=== PATIENT | female | born 1945 | race Caucasian/White ===

== ENCOUNTER 2019-12-15 23:50 | Inpatient (IN) ==
[2019-12-16] MEDS ORDERED: DEXTROSE 50% 25 GM/50 ML VIAL IV PRN (02:31)
[2019-12-16] MEDS ORDERED: GLUCAGON 1 MG VIAL IM PRN (02:31)
[2019-12-16] MEDS ORDERED: ONDANSETRON 4 MG/2 ML VIAL IV PRN (02:31)
[2019-12-16] MEDS ORDERED: SODIUM CHLORIDE 0.45% 1,000 ML IV SCH (03:00)
[2019-12-16 03:44] LABS: Basophils % 0.4 % (0.0-0.8); Eosinophils % 0.4 % (0.00-10.9); Hematocrit 28.5 VOL% (35.7-47.0); Hemoglobin 9.1 GM/DL (12.0-16.0); Immature Granulocytes % 0.4 %; Immature Granulocytes Absolute 0.03 #; Lymphocytes # 0.4 10*3/uL (1.4-4.0); Lymphocytes % 6.5 % (21.3-54.2); Mean Corpuscular HGB Conc 31.9 GM/DL (32-36); Mean Corpuscular Volume 100.4 FL (87-102); Mean Platelet Volume 10.8 FL (9.6-12.0); Neutrophils % 81.3 % (38.7-73.9); Platelet Count 131 T/CUMM (130-400); Red Blood Count 2.84 MC/CUMM (3.8-5.5); White Blood Count 6.7 T/CUMM (4-12)
[2019-12-16 04:31] LABS: Albumin 3.1 G/DL (3.4-5.0); Bilirubin,Total 1.9 MG/DL (0.2-1.0); Calcium 8.6 MG/DL (8.5-10.1); Osmolality,Calculated 294.2 MOS/KG (273-304); Total Protein 7.2 G/DL (6.4-8.3)
[2019-12-16 08:54] LABS: % Iron Saturation 11.5 % (18-50); Ferritin 150.3 ng/ml (8-252)
[2019-12-16] MEDS: PANTOPRAZOLE 40 MG TABLET PO SCH (09:34)
[2019-12-16] MEDS: LACTULOSE 20 GM/30 ML UDCUP PO SCH ×3 (09:34→18:34)
[2019-12-16] MEDS: ENOXAPARIN 30 MG/0.3 ML SYRINGE SUBCUT SCH (09:35)
[2019-12-16 14:21] LABS: INR 1.4; PT Patient Result 14.8 SECS (9.8-11.9)
[2019-12-16 14:31] LABS: Folate > 24.0 NG/ML (5.4-24.0); Vitamin B12 > 2000 PG/ML (211-911)
[2019-12-16 15:13] LABS: Hepatitis B Core IgM Quant 0.12 Index; Hepatitis B Surface Ag Quant < 0.10 Index; Hepatitis B Surface Ag Result Negative (Negative); Hepatitis C Virus Ab Quant 0.07 Index; Hepatitis C Virus Ab Result Negative (Negative)
[2019-12-16] MEDS: FERROUS SULFATE 325 MG TABLET PO SCH (23:59)
[2019-12-16] MEDS: ROSUVASTATIN 20 MG TABLET PO SCH (23:59)
[2019-12-17] MEDS: LACTULOSE 20 GM/30 ML UDCUP PO SCH ×7 (02:57→21:49)
[2019-12-17 05:48] LABS: Basophils % 0.4 % (0.0-0.8); Eosinophils % 0.1 % (0.00-10.9); Hematocrit 27.5 VOL% (35.7-47.0); Hemoglobin 9.1 GM/DL (12.0-16.0); Immature Granulocytes % 0.4 %; Immature Granulocytes Absolute 0.03 #; Lymphocytes # 0.6 10*3/uL (1.4-4.0); Lymphocytes % 8.1 % (21.3-54.2); Mean Corpuscular HGB Conc 33.1 GM/DL (32-36); Mean Corpuscular Volume 98.2 FL (87-102); Mean Platelet Volume 11.5 FL (9.6-12.0); Monocytes % 15.7 % (1.7-12.7); Neutrophils % 75.3 % (38.7-73.9); Platelet Count 136 T/CUMM (130-400); Red Cell Distribution Width 18.1 % (9.3-17.3); White Blood Count 7.6 T/CUMM (4-12)
[2019-12-17 06:11] LABS: Calcium 8.9 MG/DL (8.5-10.1); Osmolality,Calculated 295.2 MOS/KG (273-304)
[2019-12-17 06:13] LABS: Eosinophils 1 % (0-10); Lymphocytes 12 % (20-55); Platelet Estimate Adequate; Segmented Neutrophils 75 % (50-85); Total Cells Counted 100
[2019-12-17 06:14] LABS: Hypochromasia 1+; Ovalocytes Slight
[2019-12-17 06:16] LABS: Bilirubin,Total 2.5 MG/DL (0.2-1.0); Calcium 8.9 MG/DL (8.5-10.1); Osmolality,Calculated 296.2 MOS/KG (273-304); Total Protein 7.1 G/DL (6.4-8.3)
[2019-12-17] MEDS: PANTOPRAZOLE 40 MG TABLET PO SCH (09:47)
[2019-12-17] MEDS: FUROSEMIDE 40 MG TABLET PO SCH (09:47)
[2019-12-17] MEDS: ENOXAPARIN 30 MG/0.3 ML SYRINGE SUBCUT SCH (09:47)
[2019-12-17] MEDS: CLOPIDOGREL 75 MG TABLET PO SCH (09:48)
[2019-12-17] MEDS: ASPIRIN EC 81 MG TABLET PO SCH (09:48)
[2019-12-17] MEDS: FERROUS SULFATE 325 MG TABLET PO SCH ×2 (09:48→21:48)
[2019-12-17] MEDS ORDERED: CLINDAMYCIN INJ 900 MG in PREMIX 1 EACH IV ONE (18:53)
[2019-12-17] MEDS: ROSUVASTATIN 20 MG TABLET PO SCH (21:48)
[2019-12-18] MEDS: LACTULOSE 20 GM/30 ML UDCUP PO SCH ×3 (03:20→09:34)
[2019-12-18] MEDS ORDERED: HEPARIN 5,000 UNIT/1 ML VIAL ONE (06:35)
[2019-12-18] MEDS ORDERED: BUPIVACAINE MPF 0.25% 30 ML VIAL ONE (06:36)
[2019-12-18] MEDS ORDERED: LIDOCAINE 1%/EPI INJ 20 ML VIAL ONE (06:36)
[2019-12-18 06:44] LABS: Basophils % 0.3 % (0.0-0.8); Eosinophils % 0.3 % (0.00-10.9); Hematocrit 29.5 VOL% (35.7-47.0); Hemoglobin 9.1 GM/DL (12.0-16.0); Immature Granulocytes % 0.4 %; Immature Granulocytes Absolute 0.03 #; Lymphocytes # 0.5 10*3/uL (1.4-4.0); Lymphocytes % 6.5 % (21.3-54.2); Mean Corpuscular HGB Conc 30.8 GM/DL (32-36); Mean Corpuscular Volume 104.2 FL (87-102); Mean Platelet Volume 11.4 FL (9.6-12.0); Neutrophils % 79.5 % (38.7-73.9); Platelet Count 135 T/CUMM (130-400); Red Blood Count 2.83 MC/CUMM (3.8-5.5); Red Cell Distribution Width 18.6 % (9.3-17.3); White Blood Count 7.4 T/CUMM (4-12)
[2019-12-18 07:14] LABS: Bilirubin,Total 3.1 MG/DL (0.2-1.0); Calcium 9.5 MG/DL (8.5-10.1); Osmolality,Calculated 293.4 MOS/KG (273-304); Total Protein 7.4 G/DL (6.4-8.3)
[2019-12-18] MEDS ORDERED: SODIUM CHLORIDE 0.9% 250 ML IV SCH (07:30)
[2019-12-18] MEDS ORDERED: CLINDAMYCIN INJ 50 ML IV ONE (07:38)
[2019-12-18] MEDS ORDERED: KETAMINE 500 MG/10 ML VIAL ONE (08:12)
[2019-12-18] MEDS ORDERED: MIDAZOLAM 2 MG/2 ML VIAL ONE (08:12)
[2019-12-18] MEDS ORDERED: ONDANSETRON 4 MG/2 ML VIAL ONE (08:13)
[2019-12-18] MEDS: ASPIRIN EC 81 MG TABLET PO SCH (08:30)
[2019-12-18] MEDS: FUROSEMIDE 40 MG TABLET PO SCH (08:31)
[2019-12-18] MEDS: FERROUS SULFATE 325 MG TABLET PO SCH ×3 (08:31→20:36)
[2019-12-18] MEDS: PANTOPRAZOLE 40 MG TABLET PO SCH (08:31)
[2019-12-18] MEDS: CLOPIDOGREL 75 MG TABLET PO SCH (08:31)
[2019-12-18] MEDS ORDERED: LACTULOSE 320 GM/480 ML BOTTLE RECTAL SCH (13:45)
[2019-12-18 13:57] LABS: ABG Base Excess 0.7 MMOL/L (-2.5-2.5); ABG HCO3 24.9 MMOL/L (20-26); ABG Oxygen Saturation 86.4 % (95-100); ABG PCO2 37.1 MM HG (35-48); ABG PH 7.433 (7.35-7.45); ABG PO2 53.4 MM HG (80-95)
[2019-12-18] MEDS ORDERED: LACTULOSE 320 GM/480 ML BOTTLE RECTAL ONE (15:50)
[2019-12-18] MEDS: RIFAXIMIN 550 MG TABLET PO SCH ×3 (16:47→20:35)
[2019-12-18] MEDS: ROSUVASTATIN 20 MG TABLET PO SCH ×2 (20:23→20:39)
[2019-12-18] MEDS: ACETAMINOPHEN 325 MG TABLET PO PRN (20:37)
[2019-12-18 22:45] LABS: Basophils % 0.3 % (0.0-0.8); Eosinophils # 0.1 10*3/uL (0.0-0.87); Eosinophils % 0.7 % (0.00-10.9); Hematocrit 24.5 VOL% (35.7-47.0); Hemoglobin 7.8 GM/DL (12.0-16.0); Immature Granulocytes % 0.5 %; Immature Granulocytes Absolute 0.04 #; Lymphocytes # 0.5 10*3/uL (1.4-4.0); Lymphocytes % 7.2 % (21.3-54.2); Mean Corpuscular HGB Conc 31.8 GM/DL (32-36); Mean Corpuscular Volume 102.1 FL (87-102); Mean Platelet Volume 11.2 FL (9.6-12.0); Monocytes % 12.9 % (1.7-12.7); Neutrophils % 78.4 % (38.7-73.9); Platelet Count 114 T/CUMM (130-400); Red Cell Distribution Width 18.5 % (9.3-17.3); White Blood Count 7.5 T/CUMM (4-12)
[2019-12-18 22:57] LABS: INR 1.4; PT Patient Result 14.8 SECS (9.8-11.9); Partial Thromboplastin Time 33.9 SECS (23.9-33.8)
[2019-12-19 06:29] LABS: Basophils % 0.3 % (0.0-0.8); Eosinophils # 0.2 10*3/uL (0.0-0.87); Eosinophils % 2.8 % (0.00-10.9); Hematocrit 26.3 VOL% (35.7-47.0); Hemoglobin 8.3 GM/DL (12.0-16.0); Immature Granulocytes % 0.5 %; Immature Granulocytes Absolute 0.03 #; Lymphocytes # 0.7 10*3/uL (1.4-4.0); Lymphocytes % 11.6 % (21.3-54.2); Mean Corpuscular HGB Conc 31.6 GM/DL (32-36); Mean Corpuscular Volume 102.3 FL (87-102); Mean Platelet Volume 11.6 FL (9.6-12.0); Monocytes % 13.2 % (1.7-12.7); Neutrophils % 71.6 % (38.7-73.9); Platelet Count 115 T/CUMM (130-400); Red Blood Count 2.57 MC/CUMM (3.8-5.5); Red Cell Distribution Width 18.4 % (9.3-17.3); White Blood Count 6.1 T/CUMM (4-12)
[2019-12-19 06:50] LABS: Albumin 2.6 G/DL (3.4-5.0); Bilirubin,Total 2.9 MG/DL (0.2-1.0); Calcium 8.8 MG/DL (8.5-10.1); Osmolality,Calculated 284.2 MOS/KG (273-304); Total Protein 6.5 G/DL (6.4-8.3)
[2019-12-19] MEDS: ASPIRIN EC 81 MG TABLET PO SCH (10:53)
[2019-12-19] MEDS: FERROUS SULFATE 325 MG TABLET PO SCH ×2 (10:53→21:06)
[2019-12-19] MEDS: RIFAXIMIN 550 MG TABLET PO SCH ×3 (10:54→21:06)
[2019-12-19] MEDS: FUROSEMIDE 40 MG TABLET PO SCH (10:54)
[2019-12-19] MEDS: PANTOPRAZOLE 40 MG TABLET PO SCH (10:54)
[2019-12-19] MEDS ORDERED: HEPARIN 10,000 UNIT/10 ML VIAL IV SCH (11:30)
[2019-12-19] MEDS: ACETAMINOPHEN 325 MG TABLET PO PRN (14:00)
[2019-12-19] MEDS: LACTULOSE 20 GM/30 ML UDCUP PO SCH (15:08)
[2019-12-19] MEDS: ROSUVASTATIN 20 MG TABLET PO SCH (21:06)
[2019-12-20] MEDS: LACTULOSE 20 GM/30 ML UDCUP PO SCH ×3 (00:39→14:26)
[2019-12-20] MEDS: POTASSIUM CHLORIDE 20 MEQ TABLET PO PRN ×4 (00:48→06:40)
[2019-12-20 06:46] LABS: Basophils % 0.3 % (0.0-0.8); Eosinophils # 0.2 10*3/uL (0.0-0.87); Eosinophils % 2.8 % (0.00-10.9); Hematocrit 24.2 VOL% (35.7-47.0); Hemoglobin 7.8 GM/DL (12.0-16.0); Immature Granulocytes % 0.4 %; Immature Granulocytes Absolute 0.03 #; Lymphocytes # 0.7 10*3/uL (1.4-4.0); Lymphocytes % 10.1 % (21.3-54.2); Mean Corpuscular HGB Conc 32.2 GM/DL (32-36); Mean Corpuscular Volume 102.1 FL (87-102); Mean Platelet Volume 12.1 FL (9.6-12.0); Monocytes % 14.3 % (1.7-12.7); Neutrophils % 72.1 % (38.7-73.9); Platelet Count 79 T/CUMM (130-400); Red Blood Count 2.37 MC/CUMM (3.8-5.5); Red Cell Distribution Width 18.5 % (9.3-17.3); White Blood Count 7.1 T/CUMM (4-12)
[2019-12-20 07:16] LABS: Calcium 8.7 MG/DL (8.5-10.1); Osmolality,Calculated 274.2 MOS/KG (273-304); Platelet Estimate Decreased
[2019-12-20 07:17] LABS: Anisocytosis 3+; Macrocytosis 2+
[2019-12-20 07:18] LABS: Poikilocytosis Slight; Polychromasia Slight; Target Cells Few
[2019-12-20] MEDS: FERROUS SULFATE 325 MG TABLET PO SCH ×2 (14:24→21:30)
[2019-12-20] MEDS: RIFAXIMIN 550 MG TABLET PO SCH ×3 (14:25→21:29)
[2019-12-20] MEDS: ASPIRIN EC 81 MG TABLET PO SCH (14:25)
[2019-12-20] MEDS: FUROSEMIDE 40 MG TABLET PO SCH (14:25)
[2019-12-20] MEDS: PANTOPRAZOLE 40 MG TABLET PO SCH ×2 (14:26→21:29)
[2019-12-20] MEDS ORDERED: NITROGLYCERIN SL 0.4 MG TABLET SL ONE (15:25)
[2019-12-20] MEDS ORDERED: MORPHINE 4 MG/1 ML VIAL ONE ×2 (15:29→15:39)
[2019-12-20] MEDS ORDERED: ALUM/MAG/SIMETH/LIDO VISC 1:1 30 ML BOTTLE PO ONE ×2 (15:31→15:32)
[2019-12-20] MEDS ORDERED: ENOXAPARIN 80 MG/0.8 ML SYRINGE SUBCUT SCH (16:00)
[2019-12-20] MEDS: LEVOFLOXACIN INJ 500 MG in PREMIX 1 EACH IV SCH (16:59)
[2019-12-20 20:53] LABS: Troponin I 0.475 NG/ML (0.00-0.045)
[2019-12-20] MEDS: ROSUVASTATIN 20 MG TABLET PO SCH (21:40)
[2019-12-21] MEDS: LACTULOSE 20 GM/30 ML UDCUP PO SCH ×4 (00:11→23:31)
[2019-12-21 05:14] LABS: Basophils % 0.3 % (0.0-0.8); Eosinophils # 0.1 10*3/uL (0.0-0.87); Eosinophils % 1.5 % (0.00-10.9); Hematocrit 24.3 VOL% (35.7-47.0); Hemoglobin 7.6 GM/DL (12.0-16.0); Immature Granulocytes % 0.5 %; Immature Granulocytes Absolute 0.03 #; Lymphocytes # 0.7 10*3/uL (1.4-4.0); Lymphocytes % 10.4 % (21.3-54.2); Mean Corpuscular HGB Conc 31.3 GM/DL (32-36); Mean Corpuscular Volume 103.4 FL (87-102); Mean Platelet Volume 12.2 FL (9.6-12.0); NRBC # 0.02 10*3/uL; Neutrophils % 73.3 % (38.7-73.9); Platelet Count 55 T/CUMM (130-400); Red Blood Count 2.35 MC/CUMM (3.8-5.5); Red Cell Distribution Width 18.6 % (9.3-17.3); White Blood Count 6.6 T/CUMM (4-12)
[2019-12-21 05:37] LABS: Calcium 8.8 MG/DL (8.5-10.1); Osmolality,Calculated 273.1 MOS/KG (273-304)
[2019-12-21 06:49] LABS: Anisocytosis 2+; Basophilic Stippling Slight; Eosinophils 1 % (0-10); Lymphocytes 9 % (20-55); Macrocytosis 2+; Platelet Estimate Decreased; Poikilocytosis Slight; Segmented Neutrophils 76 % (50-85); Total Cells Counted 100
[2019-12-21 06:50] LABS: Tear Drop Cells Few
[2019-12-21] MEDS: ASPIRIN EC 81 MG TABLET PO SCH (09:08)
[2019-12-21] MEDS: PANTOPRAZOLE 40 MG TABLET PO SCH ×2 (09:08→20:01)
[2019-12-21] MEDS: FUROSEMIDE 40 MG TABLET PO SCH (09:08)
[2019-12-21] MEDS: RIFAXIMIN 550 MG TABLET PO SCH ×3 (09:08→20:01)
[2019-12-21] MEDS: FERROUS SULFATE 325 MG TABLET PO SCH ×2 (09:08→20:01)
[2019-12-21] MEDS: ROSUVASTATIN 20 MG TABLET PO SCH (20:01)
[2019-12-21] MEDS: MORPHINE 4 MG/1 ML VIAL IV PRN (22:00)
[2019-12-22] MEDS: LACTULOSE 20 GM/30 ML UDCUP PO SCH ×3 (06:02→23:57)
[2019-12-22 06:34] LABS: Basophils % 0.3 % (0.0-0.8); Eosinophils # 0.1 10*3/uL (0.0-0.87); Hematocrit 25.5 VOL% (35.7-47.0); Hemoglobin 8.2 GM/DL (12.0-16.0); Immature Granulocytes % 0.6 %; Immature Granulocytes Absolute 0.04 #; Lymphocytes # 0.7 10*3/uL (1.4-4.0); Lymphocytes % 10.8 % (21.3-54.2); Mean Corpuscular HGB Conc 32.2 GM/DL (32-36); Mean Platelet Volume 12.5 FL (9.6-12.0); Monocytes % 13.3 % (1.7-12.7); NRBC # 0.02 10*3/uL; Red Cell Distribution Width 18.3 % (9.3-17.3); White Blood Count 6.4 T/CUMM (4-12)
[2019-12-22 06:37] LABS: Platelet Count 53 T/CUMM (130-400)
[2019-12-22 07:00] LABS: Hypochromasia 1+; Ovalocytes Slight; Platelet Estimate Decreased
[2019-12-22 07:13] LABS: Albumin 2.8 G/DL (3.4-5.0); Bilirubin,Direct 1.18 MG/DL (0.0-0.20); Bilirubin,Indirect 2.1 MG/DL (0.0-1.0); Bilirubin,Total 3.3 MG/DL (0.2-1.0); Total Protein 6.8 G/DL (6.4-8.3)
[2019-12-22 07:29] LABS: Calcium 9.3 MG/DL (8.5-10.1); Osmolality,Calculated 275.2 MOS/KG (273-304)
[2019-12-22] MEDS: ASPIRIN EC 81 MG TABLET PO SCH (08:16)
[2019-12-22] MEDS: FUROSEMIDE 40 MG TABLET PO SCH (08:16)
[2019-12-22] MEDS: FERROUS SULFATE 325 MG TABLET PO SCH ×2 (08:16→20:33)
[2019-12-22] MEDS: PANTOPRAZOLE 40 MG TABLET PO SCH ×2 (08:16→20:33)
[2019-12-22] MEDS: RIFAXIMIN 550 MG TABLET PO SCH ×3 (08:17→20:32)
[2019-12-22] MEDS: POTASSIUM CHLORIDE 20 MEQ TABLET PO PRN (08:17)
[2019-12-22] MEDS: LEVOFLOXACIN INJ 500 MG in PREMIX 1 EACH IV SCH (16:32)
[2019-12-22] MEDS: ACETAMINOPHEN 325 MG TABLET PO PRN (16:32)
[2019-12-22] MEDS: MORPHINE 4 MG/1 ML VIAL IV PRN (19:34)
[2019-12-22] MEDS: ROSUVASTATIN 20 MG TABLET PO SCH (20:33)
[2019-12-23 04:11] LABS: Basophils % 0.4 % (0.0-0.8); Eosinophils # 0.1 10*3/uL (0.0-0.87); Eosinophils % 0.9 % (0.00-10.9); Hematocrit 24.3 VOL% (35.7-47.0); Hemoglobin 7.9 GM/DL (12.0-16.0); Immature Granulocytes % 0.5 %; Immature Granulocytes Absolute 0.03 #; Lymphocytes # 0.6 10*3/uL (1.4-4.0); Lymphocytes % 9.8 % (21.3-54.2); Mean Corpuscular HGB Conc 32.5 GM/DL (32-36); Mean Corpuscular Volume 102.5 FL (87-102); Mean Platelet Volume 12.5 FL (9.6-12.0); Monocytes % 11.5 % (1.7-12.7); Neutrophils % 76.9 % (38.7-73.9); Platelet Count 53 T/CUMM (130-400); Red Blood Count 2.37 MC/CUMM (3.8-5.5); Red Cell Distribution Width 18.6 % (9.3-17.3); White Blood Count 5.6 T/CUMM (4-12)
[2019-12-23 04:47] LABS: Hypochromasia 1+; Lymphocytes 7 % (20-55); Microcytosis Slight; Ovalocytes Slight; Platelet Estimate Decreased; Segmented Neutrophils 87 % (50-85); Total Cells Counted 100
[2019-12-23 05:04] LABS: Calcium 8.6 MG/DL (8.5-10.1); Osmolality,Calculated 267.4 MOS/KG (273-304)
[2019-12-23] MEDS: LACTULOSE 20 GM/30 ML UDCUP PO SCH ×3 (06:07→23:16)
[2019-12-23] MEDS: PANTOPRAZOLE 40 MG TABLET PO SCH ×2 (08:36→20:19)
[2019-12-23] MEDS: ASPIRIN EC 81 MG TABLET PO SCH (08:36)
[2019-12-23] MEDS: FUROSEMIDE 40 MG TABLET PO SCH (08:36)
[2019-12-23] MEDS: FERROUS SULFATE 325 MG TABLET PO SCH ×2 (08:36→20:19)
[2019-12-23] MEDS: CLOPIDOGREL 75 MG TABLET PO SCH (08:36)
[2019-12-23] MEDS: RIFAXIMIN 550 MG TABLET PO SCH ×3 (08:36→20:18)
[2019-12-23] MEDS: MORPHINE 4 MG/1 ML VIAL IV PRN (08:37)
[2019-12-23] MEDS: ACETAMINOPHEN 325 MG TABLET PO PRN (11:20)
[2019-12-23] MEDS: ROSUVASTATIN 20 MG TABLET PO SCH (20:19)
[2019-12-24] MEDS ORDERED: SODIUM CHLORIDE 0.9% 1,000 ML IV SCH (08:00)
[2019-12-24 08:11] LABS: Basophils % 0.3 % (0.0-0.8); Eosinophils # 0.1 10*3/uL (0.0-0.87); Eosinophils % 0.7 % (0.00-10.9); Hematocrit 29.2 VOL% (35.7-47.0); Hemoglobin 9.2 GM/DL (12.0-16.0); Immature Granulocytes % 0.6 %; Immature Granulocytes Absolute 0.04 #; Lymphocytes # 0.5 10*3/uL (1.4-4.0); Lymphocytes % 6.7 % (21.3-54.2); Mean Corpuscular HGB Conc 31.5 GM/DL (32-36); Mean Corpuscular Volume 103.9 FL (87-102); Mean Platelet Volume 11.6 FL (9.6-12.0); Monocytes % 9.8 % (1.7-12.7); Neutrophils % 81.9 % (38.7-73.9); Platelet Count 61 T/CUMM (130-400); Red Blood Count 2.81 MC/CUMM (3.8-5.5); Red Cell Distribution Width 18.6 % (9.3-17.3); White Blood Count 7.1 T/CUMM (4-12)
[2019-12-24 08:23] LABS: Calcium 9.2 MG/DL (8.5-10.1); Osmolality,Calculated 274.2 MOS/KG (273-304)
[2019-12-24 08:30] LABS: Hypochromasia 1+; Platelet Estimate Decreased
[2019-12-24 08:31] LABS: Microcytosis Slight
[2019-12-24] MEDS ORDERED: LIDOCAINE 2% 5 ML VIAL ONE (09:00)
[2019-12-24] MEDS ORDERED: propofoL 200 MG/20 ML VIAL IV ONE (09:00)
[2019-12-24] MEDS: MORPHINE 4 MG/1 ML VIAL IV PRN ×2 (11:20→19:41)
[2019-12-24] MEDS: LACTULOSE 20 GM/30 ML UDCUP PO SCH ×3 (16:29→23:08)
[2019-12-24] MEDS: FERROUS SULFATE 325 MG TABLET PO SCH ×2 (16:31→20:32)
[2019-12-24] MEDS: PANTOPRAZOLE 40 MG TABLET PO SCH ×2 (16:31→20:32)
[2019-12-24] MEDS: POTASSIUM CHLORIDE 20 MEQ TABLET PO PRN (16:31)
[2019-12-24] MEDS: FUROSEMIDE 40 MG TABLET PO SCH (16:31)
[2019-12-24] MEDS: RIFAXIMIN 550 MG TABLET PO SCH ×3 (16:31→20:32)
[2019-12-24] MEDS: ASPIRIN EC 81 MG TABLET PO SCH (16:32)
[2019-12-24] MEDS: CLOPIDOGREL 75 MG TABLET PO SCH (16:32)
[2019-12-24] MEDS: LEVOFLOXACIN INJ 500 MG in PREMIX 1 EACH IV SCH (16:35)
[2019-12-24] MEDS: ROSUVASTATIN 20 MG TABLET PO SCH (20:32)
[2019-12-25] MEDS: CLOPIDOGREL 75 MG TABLET PO SCH (08:27)
[2019-12-25] MEDS: FERROUS SULFATE 325 MG TABLET PO SCH (08:27)
[2019-12-25] MEDS: PANTOPRAZOLE 40 MG TABLET PO SCH (08:27)
[2019-12-25] MEDS: RIFAXIMIN 550 MG TABLET PO SCH (08:27)
[2019-12-25] MEDS: LACTULOSE 20 GM/30 ML UDCUP PO SCH (08:28)
[2019-12-25] MEDS: FUROSEMIDE 40 MG TABLET PO SCH (08:28)
[2019-12-25] MEDS: ASPIRIN EC 81 MG TABLET PO SCH (08:28)
[2019-12-25 11:45] VITALS: BP 129/43
== END 2019-12-25 14:33 | DRG 432 ==
LOC: N.TELES 12-16 01:45 → SUATTDRO 12-16 01:45
PROVIDERS: ADMIT Internal Medicine; ATTEND Hospitalist